=== PATIENT | female | born 1945 | race Caucasian/White ===

== ENCOUNTER 2017-01-07 20:36 | Emergency (ER) | payer MEDICARE, OTHER ==
[~2017-01-07] VITALS: Ht 157.5 cm; Wt 70.0 kg
[~2017-01-07 20:36] MED LIST: AMIT50 PO; ASPI81TA82 PO; BUSP5TAB PO; CARD180C5 PO; CLON-352 PO; DIGO0.12 PO; LISI-360 PO; MAGO400T PO; MAXZ PO; MELA5TAB13 PO; METO25 PO; PRAV20 PO
[2017-01-07 20:38] VITALS: BP 116/76; PULSE 68; RESP 16; TEMP 98.7; O2SAT 100
[2017-01-07] MEDS ORDERED: DIGO0.12 PO (21:23)
[2017-01-07] MEDS ORDERED: LISI10TA3 PO (21:23)
[2017-01-07] MEDS ORDERED: DILT180C7 PO (21:23)
[2017-01-07] MEDS ORDERED: MAGN400C2 PO (21:23)
[2017-01-07] MEDS ORDERED: PROT40TA PO (21:23)
[2017-01-07] MEDS ORDERED: ASPI81TA81 PO (21:23)
[2017-01-07] MEDS ORDERED: METO25TA3 PO (21:23)
[2017-01-07] MEDS ORDERED: PRAV40TA2 PO (21:23)
[2017-01-07] MEDS ORDERED: VITA1000 PO (21:23)
[2017-01-07] MEDS ORDERED: MELAPOW2 PO (21:23)
--- NOTE | 2017-01-07 22:04 | PD ---
HPI Chief Complaint: Neuro Symptoms/ Deficits Time Seen by Provider: 22:04 Travel History International Travel<30 days: No Contact w/Intl Traveler<30days: No Traveled to known affect area: No History of Present Illness HPI 71-year-old female with a history of hypertension, hyperlipidemia, atrial fibrillation, hemorrhagic CVA presents to the emergency department for evaluation of headache and left arm paresthesias. The patient states that she has had intermittent left arm numbness and tingling for the past 6 months. States that it typically lasts for a few hours and resolves on its own. States that last night the numbness and tingling began and lasted throughout the night and the day today. States that it has started to improve over the last several hours. States that today she also had a slow onset headache around her forehead and bilateral temporal region that started this morning. States that the headache has waxed and waned throughout the day in intensity. States that at one point she did experience some watering of her eyes secondary to the headache and reports that she now has a pressure in her posterior head. States that the headache has also improved however she is concerned because she states that her headache today was similar to her prior stroke. Of note she did suffer a hemorrhagic stroke while on warfarin, she is now ulnarly anticoagulated on aspirin. She has also had some mild nausea over the past 2 days. She denies any fever, chills, vomiting, diarrhea, chest pain, shortness of breath, difficulty breathing, lightheadedness, dizziness, weakness, speech difficulties, swallowing difficulties, gait instability. No other complaints. PCP Dr. Ibanez. [facility] Past Medical History Atrial Fibrillation: Yes Heart Rhythm Problems: Yes (A FIB) Cancer: No Cardiac Catheterization: No Cardiovascular Problems: Yes (A. FIBRILLATION) High Cholesterol: Yes Congestive Heart Failure: Yes Cerebrovascular Accident: Yes (CVA) Diabetes: No Diminished Hearing: No Endocrine: No Gastrointestinal Disorders: Yes (IBS) GERD: Yes Genitourinary: No Headaches: Yes Hepatitis: No Hiatal Hernia: No Hypertension: Yes Immune Disorder: No Musculoskeletal: Yes (ARTHRITIS RIGHT THUMB) Psychiatric: Yes (CLAUSTROPHOBIA) Respiratory: No Migraines: Yes Thyroid Disease: No Menopausal: Yes Tubal Ligation: Yes Past Surgical History Abdominal Surgery: Yes (TUBAL LIGATION) AICD: No Body Medical Devices: N/A Cardiac Surgery: No Cholecystectomy: Yes Coronary Artery Bypass Graft: No Ear Surgery: No Endocrine Surgery: No Eye Surgery: No Genitourinary Surgery: No Gynecologic Surgery: No Joint Replacement: No Oral Surgery: Yes (PARTIAL UPPER AND LOWER DENTURES) Pacemaker: No Thoracic Surgery: Yes (BIOPSY LEFT BREAST- BENIGN) Other Surgery: Yes (BIOPSY L BREAST-BENIGN) Family History Family Myocardial Infarction: Yes Social History Alcohol Use: No Tobacco Use: No Substance Use: No Allergies-Medications (Allergen,Severity, Reaction): Coded Allergies: Codeine (Verified Allergy, Severe, STOMACHE PAIN, 01/07/17) Aspirin (Verified Allergy, Mild, STOMACH PAIN- CAN TAKE COATED ASPIRIN, 01/07/17) Reported Meds & Prescriptions Reported Meds & Active Scripts Active Reported Aspir-81 (Aspirin) 81 Mg Tabdr 81 Mg PO DAILY Protonix (Pantoprazole Sodium) 40 Mg Tab 40 Mg PO DAILY Melatonin (Melatonin (Bulk)) 1 Pow Pow 3 Mg PO QHS Digoxin 0.125 Mg Tab 0.125 Mg PO DAILY Magnesium Oxide 400 Mg Cap 400 Mg PO DAILYT Pravastatin 40 Mg Tab 40 Mg PO DAILY Metoprolol Tartrate 25 Mg Tab 25 Mg PO DAILY Diltiazem ER 24 HR (Diltiazem HCl) 180 Mg Caper 360 Mg PO DAILY Vitamin D-1000 (Cholecalciferol) 1,000 Unit Tab 1,000 Units PO DAILY Lisinopril 10 Mg Tab 10 Mg PO BID Review of Systems Except as stated in HPI: all other systems reviewed are Neg Physical Exam Narrative GENERAL: Well-nourished and well-developed pleasant female patient in no acute distress who is nontoxic appearing. SKIN: Warm and dry. HEAD: Normocephalic and atraumatic. No facial droop. EYES: No injection, drainage, or hyphema noted. PERRLA. EOMI. ENT: No nasal drainage noted. Oropharynx is clear. NECK: Supple and the trachea is midline. CARDIOVASCULAR: Regular rate and rhythm. RESPIRATORY: Breath sounds are equal bilaterally with no accessory muscle use, wheezing, rhonchi, or crackles. GASTROINTESTINAL: Abdomen is soft, non-tender, and nondistended. MUSCULOSKELETAL: Mild swelling of bilateral ankles. No obvious deformities, cyanosis, or ecchymosis is present throughout the upper and lower extremities. Patient has full range of motion without any signs of neurovascular compromise. Strength 5/5 upper and lower extremities and equal bilaterally. NEUROLOGICAL: Awake, alert, and oriented. Normal speech and gait. Normal finger to nose test. Normal [id number] test. Normal rapid alternating movements. Cranial nerves are grossly intact. Data Data Last Documented VS Vital Signs Date Time Temp Pulse Resp B/P Pulse Ox O2 Delivery O2 Flow Rate FiO2 01/07/17 21:16 98 Room Air 01/07/17 20:38 98.7 68 16 116/76 Orders Electrocardiogram (01/07/17 22:02) Complete Blood Count With Diff (01/07/17 22:02) Comprehensive Metabolic Panel (01/07/17 22:02) Digoxin (01/07/17 22:02) Prothrombin Time / Inr (Pt) (01/07/17 22:02) Act Partial Throm Time (Ptt) (01/07/17 22:02) Chest, Single Ap (01/07/17 22:02) Ecg Monitoring (01/07/17 22:02) Iv Access Insert/Monitor (01/07/17 22:02) Oximetry (01/07/17 22:02) Sodium Chloride 0.9% Flush (Ns Flush) (01/07/17 22:15) Ct Brain W/O Iv Contrast(Rout) (01/07/17 22:02) B-Type Natriuretic Peptide (01/07/17 22:12) MDM Medical Decision Making Medical Screen Exam Complete: Yes Emergency Medical Condition: Yes Differential Diagnosis Migraine headache versus tension headache versus CVA versus radiculopathy Narrative Course 71-year-old female presents to the emergency department for evaluation of 2 separate complaints of headache and left arm paresthesias. Patient is afebrile , vital signs are stable. The headache was slow onset and began today. The paresthesias in the left arm has been intermittent for 6 months. No focal neurologic deficits on examination. IV access is obtained, labs were drawn and sent. Patient is placed on cardiac telemetry and pulse oximetry monitoring. As x-ray and head CT has been ordered and is pending. Patient signed out to Dr. Gutierres who will assume care of the patient and disposition at my end of shift. Daily Minor Jan 07, 2017 22:04
[2017-01-07] MEDS ORDERED: SODIUM CHLORIDE 0.9% FLUSH 10 ML FLUSH IVF PRN (22:15)
--- NOTE | 2017-01-07 22:23 | RADRPT ---
EXAM DATE/TIME: 01/07/2017 22:16 [facility] COMPARISON: CT BRAIN W/O CONTRAST, December 20, 2013, 12:38. INDICATIONS : Cephalgia with numbness and tingling in left arm. RADIATION DOSE: 33.20 CTDIvol (mGy) MEDICAL HISTORY : Stroke. Hypertension. Cardiovascular disease SURGICAL HISTORY : Cholecystectomy. Tubal ligation. ENCOUNTER: Initial ACUITY: 1 day PAIN SCALE: 5/10 LOCATION: cranial TECHNIQUE: Multiple contiguous axial images were obtained of the head. Using automated exposure control and adj ustment of the mA and/or kV according to patient size, radiation dose was kept as low as reasonably a chievable to obtain optimal diagnostic quality images. FINDINGS: CEREBRUM: The ventricles are normal for age. No evidence of midline shift, mass lesion, hemorrhage or acute in farction. No extra-axial fluid collections are seen. 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 POSTERIOR FOSSA: The cerebellum and brainstem are intact. The 4th ventricle is midline. The cerebellopontine angle i s unremarkable. EXTRACRANIAL: The visualized portion of the orbits is intact. SKULL: The calvaria is intact. No evidence of skull fracture. CONCLUSION: 1. No acute intracranial hemorrhage. 2. Old infarct involving the posterior right temporal lobe. 3. Otherwise, no other new or significant changes are seen compared to the prior study. Familia Bowen MD on January 07, 2017 at 22:21 Board Certified Radiologist. This report was verified electronically.
--- NOTE | 2017-01-07 22:24 | RADRPT ---
EXAM DATE/TIME: 01/07/2017 22:02 [facility] COMPARISON: CHEST SINGLE AP, September 07, 2014, 8:35. EXTERNAL COMPARISON : [facility] 2015 INDICATIONS : Syncope. Headache and left arm numbness since yesterday. MEDICAL HISTORY : Hypertension. Stroke. SURGICAL HISTORY : None. ENCOUNTER: Initial ACUITY: 2 days PAIN SCORE: 2/10 LOCATION: Bilateral chest FINDINGS: A single view of the chest demonstrates the lungs to be symmetrically aerated without evidence of mas s, infiltrate or effusion. The cardiomediastinal contours are unremarkable. Osseous structures are intact. CONCLUSION: No acute pulmonary infiltrates. Familia Bowen MD on January 07, 2017 at 22:22 Board Certified Radiologist. This report was verified electronically.
[2017-01-07 22:35] LABS: AUTOMATED NEUTROPHIL # 4.2 TH/MM3 (1.8-7.7); BASOPHIL % 0.4 % (0.0-2.0); EOSINOPHIL # 0.1 TH/MM3 (0-0.4); EOSINOPHIL % 1.3 % (0.0-4.0); HEMATOCRIT 37.1 % (35.0-46.0); HEMO FLAGS DIFF FINAL; LYMPH % 31.7 % (9.0-44.0); LYMPHOCYTE # 2.2 TH/MM3 (1.0-4.8); MEAN CELL VOLUME 82.6 FL (80.0-100.0); MEAN CORPUSCULAR HEMOGLOBIN 28.6 PG (27.0-34.0); MEAN CORPUSCULAR HGB CONC 34.6 % (32.0-36.0); MONO % 6.9 % (0.0-8.0); NEUT % 59.7 % (16.0-70.0); PLATELET COUNT 183 TH/MM3 (150-450); RED BLOOD COUNT 4.49 MIL/MM3 (4.00-5.30); RED CELL DISTRIBUTION WIDTH 13.6 % (11.6-17.2)
[2017-01-07 22:50] LABS: APTT (PATIENT) 23.8 SEC (24.3-30.1); PROTHROMBIN TIME - PATIENT 10.5 SEC (9.8-11.6)
[2017-01-07 23:14] LABS: ANION GAP 7 MEQ/L (5-15); AST (GOT) 14 U/L (15-37); BICARBONATE 29.2 MEQ/L (21.0-32.0); BLOOD UREA NITROGEN 19 MG/DL (7-18); CHLORIDE 105 MEQ/L (98-107); GLOMERULAR FILTRATION RATE 73 ML/MIN (>89); POTASSIUM 3.7 MEQ/L (3.5-5.1); SODIUM (NA) 141 MEQ/L (136-145)
[2017-01-07 23:28] LABS: ALKALINE PHOSPHATASE 83 U/L (45-117); ALT (GPT) 17 U/L (10-53); DIGOXIN 0.7 NG/ML (0.8-2.0); TOTAL BILIRUBIN ADULT 0.3 MG/DL (0.2-1.0)
--- NOTE | 2017-01-08 00:37 | PD ---
Data Data Last Documented VS Vital Signs Date Time Temp Pulse Resp B/P Pulse Ox O2 Delivery O2 Flow Rate FiO2 01/07/17 21:16 98 Room Air 01/07/17 20:38 98.7 68 16 116/76 Orders Electrocardiogram (01/07/17 22:02) Complete Blood Count With Diff (01/07/17 22:02) Comprehensive Metabolic Panel (01/07/17 22:02) Digoxin (01/07/17 22:02) Prothrombin Time / Inr (Pt) (01/07/17 22:02) Act Partial Throm Time (Ptt) (01/07/17 22:02) Chest, Single Ap (01/07/17 22:02) Ecg Monitoring (01/07/17 22:02) Iv Access Insert/Monitor (01/07/17 22:02) Oximetry (01/07/17 22:02) Sodium Chloride 0.9% Flush (Ns Flush) (01/07/17 22:15) Ct Brain W/O Iv Contrast(Rout) (01/07/17 22:02) B-Type Natriuretic Peptide (01/07/17 22:12) Labs Laboratory Tests Test 01/07/17 22:10 White Blood Count 7.0 TH/MM3 Red Blood Count 4.49 MIL/MM3 Hemoglobin 12.8 GM/DL Hematocrit 37.1 % Mean Corpuscular Volume 82.6 FL Mean Corpuscular Hemoglobin 28.6 PG Mean Corpuscular Hemoglobin 34.6 % Concent Red Cell Distribution Width 13.6 % Platelet Count 183 TH/MM3 Mean Platelet Volume 8.8 FL Neutrophils (%) (Auto) 59.7 % Lymphocytes (%) (Auto) 31.7 % Monocytes (%) (Auto) 6.9 % Eosinophils (%) (Auto) 1.3 % Basophils (%) (Auto) 0.4 % Neutrophils # (Auto) 4.2 TH/MM3 Lymphocytes # (Auto) 2.2 TH/MM3 Monocytes # (Auto) 0.5 TH/MM3 Eosinophils # (Auto) 0.1 TH/MM3 Basophils # (Auto) 0.0 TH/MM3 CBC Comment DIFF FINAL Differential Comment Prothrombin Time 10.5 SEC Prothromb Time International 1.0 RATIO Ratio Activated Partial 23.8 SEC Thromboplast Time Sodium Level 141 MEQ/L Potassium Level 3.7 MEQ/L Chloride Level 105 MEQ/L Carbon Dioxide Level 29.2 MEQ/L Anion Gap 7 MEQ/L Blood Urea Nitrogen 19 MG/DL Creatinine 0.77 MG/DL Estimat Glomerular Filtration 73 ML/MIN Rate Random Glucose 72 MG/DL Calcium Level 8.8 MG/DL Total Bilirubin 0.3 MG/DL Aspartate Amino Transf 14 U/L (AST/SGOT) Alanine Aminotransferase 17 U/L (ALT/SGPT) Alkaline Phosphatase 83 U/L B-Type Natriuretic Peptide 66 PG/ML Total Protein 7.0 GM/DL Albumin 3.8 GM/DL Digoxin Level 0.7 NG/ML [facility] Supervised Visit with KUMAR: Yes Narrative Course The history, exam, and medical decision-making in the associated mid-level provider note were completed with my assistance. I reviewed and agree with the findings presented. I attest that I had a [id number] encounter with the patient on the same day, and personally performed and documented my assessment and findings in the medical record. *My assessment and Findings: 70 year-old woman, multiple medical problems including most notably previous hemorrhagic CVA, A. fib, hypertension, hyperlipidemia who presented for headache and left arm tingling. Left arm tingling is been ongoing. She is a history of headaches but today the headache was worsened typical. Waxed and waned throughout the day. She normally does not take anything for headaches not to take medicine for headaches today. She otherwise has been feeling generally well. Studies show: CBC is unremarkable CMP is unremarkable BNP is normal Coags unremarkable Digoxin 0.[address] negative for acute hemorrhage. Old infarct in the right temporal lobe. Chest x-ray negative. FINAL: 70 year-old woman, looks much improved now. Still some intermittent headache. Workups unremarkable. Pain the left arms likely radiculopathy. Recommend outpatient follow-up. Diagnosis Primary Impression: Headache Additional Instruction: Use Tylenol as needed for pain. Follow up with her primary doctor for not completely improved by Monday. Return to the emergency department for any new or worsening symptoms. Med/Other Pt SpecificInfo: Prescription(s) given Disposition: DISCHARGE HOME Condition: Stable Rogers Gutierres MD Jan 08, 2017 00:37
[2017-01-08 00:39] VITALS: BP 126/81; PULSE 79; RESP 18; O2SAT 96
[2017-01-08 00:44] VITALS: O2SAT 96
== END 2017-01-08 01:13 | disposition home or self-care (01) ==
LOC: NEPC 20:36
DX: R51 Headache (principal); I10 Essential (primary) hypertension; Z86.73 Personal history of transient ischemic attack (TIA), and cerebral infarction without residual deficits; E78.5 Hyperlipidemia, unspecified; I48.91 Unspecified atrial fibrillation
CPT/HCPCS: 70450; 71010; 80053; 80162; 83880; 85025; 85610; 85730

== ENCOUNTER 2017-02-19 14:12 | Emergency (ER) | payer OTHER ==
[~2017-02-19] VITALS: Ht 157.5 cm; Wt 72.0 kg
[~2017-02-19 14:12] MED LIST changes: -AMIT50 PO; +ASPI81TA81 PO; -ASPI81TA82 PO; -BUSP5TAB PO; -CARD180C5 PO; -CLON-352 PO; +DILT180C7 PO; -LISI-360 PO; +LISI10TA3 PO; +MAGN400C2 PO; -MAGO400T PO; -MAXZ PO; -MELA5TAB13 PO; +MELAPOW2 PO; -METO25 PO; +METO25TA3 PO; -PRAV20 PO; +PRAV40TA2 PO; +PROT40TA PO; +VITA1000 PO
[2017-02-19 14:16] VITALS: BP 146/79; PULSE 75; RESP 16; TEMP 98.2; O2SAT 98
--- NOTE | 2017-02-19 14:22 | PD ---
HPI Chief Complaint: Injury Time Seen by Provider: 14:22 Travel History International Travel<30 days: No Contact w/Intl Traveler<30days: No Traveled to known affect area: No History of Present Illness HPI 71-year-old female presents the emergency department for today status post fall in her driveway. Patient states she injured her right knee, and ankle. She also landed on her hip which she says is fine now. She states she did "hit her head" on a planter flexion denies loss of consciousness or headache currently. Her chief complaint is of pain in the right ankle and lower leg. She has fairly extensive ecchymosis and swelling from the knee down to the foot. Patient is ambulatory to the room. She denies numbness or tingling. Pain is rated as a 3-4/10. Patient takes aspirin daily but no other anticoagulation. She is allergic to codeine, and records as aspirin which she takes one daily. PFSH Past Medical History Atrial Fibrillation: Yes Heart Rhythm Problems: Yes (A FIB) Cancer: No Cardiac Catheterization: No Cardiovascular Problems: Yes (A. FIBRILLATION) High Cholesterol: Yes Congestive Heart Failure: Yes Cerebrovascular Accident: Yes (CVA) Diabetes: No Diminished Hearing: No Endocrine: No Gastrointestinal Disorders: Yes (IBS) GERD: Yes Genitourinary: No Headaches: Yes Hepatitis: No Hiatal Hernia: No Hypertension: Yes Immune Disorder: No Musculoskeletal: Yes (ARTHRITIS RIGHT THUMB) Psychiatric: Yes (CLAUSTROPHOBIA) Respiratory: No Migraines: Yes Thyroid Disease: No Menopausal: Yes Tubal Ligation: Yes Past Surgical History Abdominal Surgery: Yes (TUBAL LIGATION) AICD: No Body Medical Devices: N/A Cardiac Surgery: No Cholecystectomy: Yes Coronary Artery Bypass Graft: No Ear Surgery: No Endocrine Surgery: No Eye Surgery: No Genitourinary Surgery: No Gynecologic Surgery: No Joint Replacement: No Oral Surgery: Yes (PARTIAL UPPER AND LOWER DENTURES) Pacemaker: No Thoracic Surgery: Yes (BIOPSY LEFT BREAST- BENIGN) Other Surgery: Yes (BIOPSY L BREAST-BENIGN) Social History Alcohol Use: No Tobacco Use: No Substance Use: No Allergies-Medications (Allergen,Severity, Reaction): Coded Allergies: Codeine (Verified Allergy, Severe, STOMACHE PAIN, 02/19/17) Aspirin (Verified Allergy, Mild, STOMACH PAIN- CAN TAKE COATED ASPIRIN, ) Reported Meds & Prescriptions Reported Meds & Active Scripts Active Reported Ranitidine 75 (Ranitidine HCl) 75 Mg Tab 75 Mg PO BID Take 30 to 60 minutes before eating food or drinking beverages that cause heartburn. Aspir-81 (Aspirin) 81 Mg Tabdr 81 Mg PO DAILY Protonix (Pantoprazole Sodium) 40 Mg Tab 40 Mg PO DAILY Melatonin (Melatonin (Bulk)) 1 Pow Pow 3 Mg PO QHS Digoxin 0.125 Mg Tab 0.125 Mg PO DAILY Magnesium Oxide 400 Mg Cap 400 Mg PO DAILYT Pravastatin 40 Mg Tab 40 Mg PO DAILY Metoprolol Tartrate 25 Mg Tab 25 Mg PO DAILY Diltiazem ER 24 HR (Diltiazem HCl) 180 Mg Caper 360 Mg PO DAILY Vitamin D-1000 (Cholecalciferol) 1,000 Unit Tab 1,000 Units PO DAILY Lisinopril 10 Mg Tab 10 Mg PO BID Review of Systems Except as stated in HPI: all other systems reviewed are Neg General / Constitutional: No: Fever Eyes: No: Visual changes HENT: No: Headaches Cardiovascular: No: Chest Pain or Discomfort Respiratory: No: Shortness of Breath Gastrointestinal: No: Abdominal Pain Genitourinary: No: Dysuria Musculoskeletal: No: Pain Skin: No Rash Neurologic: No: Weakness Psychiatric: No: Depression Endocrine: No: Polydipsia Hematologic/Lymphatic: No: Easy Bruising Physical Exam Narrative GENERAL: Patient appears in no acute distress. She is able to ambulate and get also the exam table without significant difficulty. SKIN: Warm and dry. Normal color. Normal turgor. Somewhat atrophic. Multiple old bruising to the right knee and lower extremity to the foot, without abrasion or open wound. Patient has bilateral 2+ pitting edema to both feet and lower legs up to the knees. HEAD: Atraumatic. Normocephalic. EYES: Pupils equal and round. No scleral icterus. No injection or drainage. ENT: No nasal bleeding or discharge. Mucous membranes pink and moist. Pharynx is clear. Airway is patent. NECK: Trachea midline. Supple and nontender. CARDIOVASCULAR: Regular rate and rhythm. RESPIRATORY: No accessory muscle use. Clear to auscultation. Breath sounds equal bilaterally. MUSCULOSKELETAL: Extremities without clubbing, cyanosis, with 2+ edema to the knee. No obvious deformities. Patient is tender along the lateral lower fibula and ankle. The foot is nontender but swollen with ecchymosis noted. The knee is not lax, and has normal flexion and extension. Mild tenderness is noted along the proximal right fibula. NEUROLOGICAL: Awake and alert. No obvious cranial nerve deficits. Motor grossly within normal limits. Five out of 5 muscle strength in the arms and legs. Normal speech. PSYCHIATRIC: Appropriate mood and affect; insight and judgment normal. Data Data Last Documented VS Vital Signs Date Time Temp Pulse Resp B/P Pulse Ox O2 Delivery O2 Flow Rate FiO2 02/19/17 14:16 98.2 75 16 146/79 98 Orders Us Leg Venous Doppler (02/19/17 14:28) Ankle, Complete ([id number]) (02/19/17 14:28) Knee, Ltd (1 Or 2vws) (02/19/17 14:28) Tibia/Fibula (Ap/Lat) (02/19/17 14:28) MDM Medical Decision Making Medical Screen Exam Complete: Yes Emergency Medical Condition: Yes Medical Record Reviewed: Yes Differential Diagnosis Fall at home. Right knee contusion. Right ankle sprain. Right fibular fracture. Right ankle fracture. Possible DVT. Narrative Course Patient is medically stable at time of exam. X-rays of the right knee, tib-fib, and ankle are ordered. Ultrasound of the right lower extremity is ordered. X-rays are negative for acute fracture or dislocation. Ultrasound were negative for DVT. Raf bandages placed to the lower extremity to help with erythema and discomfort. Patient is felt to have localized swelling and bruising secondary to fall with mild right ankle sprain. Patient is use Tylenol, elevation, and compression as discussed. Patient to follow with her primary care physician this week to ensure improvement. Patient can return to emergency Department with worsening symptoms as necessary. Diagnosis Primary Impression: Fall on same level from slipping as cause of accidental injury Additional Impression: Sprain of right ankle Qualified Code: S93.401A - Sprain of right ankle, unspecified ligament, initial encounter Referrals: Primary Care Physician Patient Instructions: Ankle Sprain (ED), Fall Prevention for Children (GEN), General Instructions, Leg Edema (ED) Additional Instructions: X-rays are negative for acute fracture or dislocation. Ultrasound were negative for DVT. Raf bandages placed to the lower extremity to help with erythema and discomfort. Patient is felt to have localized swelling and bruising secondary to fall with mild right ankle sprain. Patient is use Tylenol, elevation, and compression as discussed. Patient to follow with her primary care physician this week to ensure improvement. Patient can return to emergency Department with worsening symptoms as necessary. Disposition: 01 DISCHARGE HOME Condition: Stable John Peace February 19, 2017 14:22
[2017-02-19] MEDS ORDERED: RANI1TAB5 PO (14:34)
--- NOTE | 2017-02-19 15:11 | RADHPO ---
EXAM DATE/TIME: 02/19/2017 14:40 [facility] COMPARISON: No previous studies available for comparison. INDICATIONS : Fell, has right lower leg pain MEDICAL HISTORY : Stroke. SURGICAL HISTORY : None. ENCOUNTER: Initial ACUITY: 4 - 6 days PAIN SCORE: 10/10 LOCATION: Right lower leg FINDINGS: The right tibia and fibula are intact. There is marked anteriorly diffuse soft tissue swelling. Subcu taneous venous varicosities can be seen, especially medially. No radiopaque foreign body seen. CONCLUSION: Intact tibia and fibula. Nonspecific soft tissue swelling. Venous varicosities. Haroldo Pastrana MD on February 19, 2017 at 15:08 Board Certified Radiologist. This report was verified electronically.
--- NOTE | 2017-02-19 15:12 | RADHPO ---
EXAM DATE/TIME: 02/19/2017 14:48 [facility] COMPARISON: No previous studies available for comparison. INDICATIONS : Fell, right ankle area pain MEDICAL HISTORY : Stroke. SURGICAL HISTORY : None. ENCOUNTER: Initial ACUITY: 4 - 6 days PAIN SCORE: 10/10 LOCATION: Right ankle FINDINGS: Bones of the right ankle are intact and normally aligned. There is soft tissue swelling, fairly gener alized but especially medial. No radiopaque foreign body seen. CONCLUSION: Nonspecific soft tissue swelling. No fracture or subluxation of the right ankle. Haroldo Pastrana MD on February 19, 2017 at 15:10 Board Certified Radiologist. This report was verified electronically.
--- NOTE | 2017-02-19 15:13 | RADHPO ---
EXAM DATE/TIME: 02/19/2017 14:51 [facility] COMPARISON: No previous studies available for comparison. INDICATIONS : Fell has right knee pain MEDICAL HISTORY : Stroke. SURGICAL HISTORY : None. ENCOUNTER: Initial ACUITY: 4 - 6 days PAIN SCORE: 10/10 LOCATION: Right knee FINDINGS: No fracture or subluxation seen in the right knee. There is severe medial compartment joint space kirsty rowing and probably at least mild joint space narrowing of the patellofemoral compartment. No large j oint effusion seen. Extra-articular soft tissues are swollen, especially medially. CONCLUSION: Medial compartment predominant osteoarthritis. There is nonspecific soft tissue edema. No fracture or subluxation of the right knee. Haroldo Pastrana MD on February 19, 2017 at 15:10 Board Certified Radiologist. This report was verified electronically.
--- NOTE | 2017-02-19 15:39 | RADHPO ---
EXAM DATE/TIME: 02/19/2017 15:15 [facility] COMPARISON: No previous studies available for comparison. INDICATIONS : Right leg pain and swelling. MEDICAL HISTORY : Hypercholesterolemia. Gastroesophageal reflux disease. Hypertension. CHF. CVA. A-fib. SURGICAL HISTORY : Tubal ligation. Cholecystectomy. Left breast biopsy. ENCOUNTER: Initial ACUITY: 1 week PAIN SCORE: 4/10 LOCATION: Right leg. TECHNIQUE: Venous ultrasound of the leg was performed from the inguinal ligament to the proximal calf. Real-amy e, color Doppler and spectral tracing, compression and augmentation techniques were used. FINDINGS: There is normal compressibility of the deep venous system from the inguinal region to the proximal ca lf. No echogenic clot is seen in the lumen of the common femoral, femoral, popliteal, and posterior tibial veins. There is a normal response of the venous system to proximal and distal augmentation an d respiration. CONCLUSION: No DVT of the right lower extremity. Haroldo Pastrana MD on February 19, 2017 at 15:37 Board Certified Radiologist. This report was verified electronically.
== END 2017-02-19 15:45 | disposition home or self-care (01) ==
LOC: PHEFT 14:12
DX: S93.401A Sprain of unspecified ligament of right ankle, initial encounter (principal); W01.0XXA Fall on same level from slipping, tripping and stumbling without subsequent striking against object, initial encounter; Y93.9 Activity, unspecified; Y92.014 Private driveway to single-family (private) house as the place of occurrence of the external cause; Y99.8 Other external cause status; I50.9 Heart failure, unspecified; Z86.73 Personal history of transient ischemic attack (TIA), and cerebral infarction without residual deficits; I11.0 Hypertensive heart disease with heart failure
CPT/HCPCS: 73560; 73590; 73610; 93971